=== PATIENT | female | born 2000 | race Caucasian/White ===

== ENCOUNTER 2018-03-19 18:48 | Emergency (ER) | payer BC ==
[2018-03-19 19:17] VITALS: BP 147/93
--- NOTE | 2018-03-19 19:38 | UC ---
Respiratory Complaint HPI - HPI Summary HPI Summary: This patient is a 17 year old F presenting [place] [facility] [place] a chief complaint of a sore throat since 2 days ago in the afternoon. The patient rates the pain 4/10 in severity. Patient reports dysphagia earlier today. Patient denies fever and chills. - History of Current Complaint Stated Complaint: THROAT PAIN Time Seen by Provider: 03/19/18 18:49 Hx Obtained From: Patient Hx Last Menstrual Period: now Onset/Duration: Lasting Days - 3 days, Still Present Severity Initially: Moderate Severity Currently: Moderate Pain Intensity: 4 Pain Scale Used: 0-10 Numeric - Allergies/Home Medications Allergies/Adverse Reactions: Allergies Allergy/AdvReac Type Severity Reaction Status Date / Time orange oil Allergy Rash Uncoded 03/19/18 19:18 PMH/Surg Hx/FS Hx/Imm Hx Endocrine History: Diabetes - Denies Cardiovascular History: Cardiac Disease - Denies - Surgical History Surgical History: None - Family History Known Family History: Positive: Other - Thyroid issues - Social History Occupation: Student Lives: With Family Alcohol Use: Occasionally Substance Use Type: None Smoking Status (MU): Never Smoked Tobacco Have You Smoked in the Last Year: No - Immunization History Most Recent Influenza Vaccination: unknown Most Recent Pneumonia Vaccination: as infant Review of Systems Constitutional: Fever - Denies, Chills - Denies ENT: Sore Throat - Since 2 days ago in the afternoon, Other - Dysphagia All Other Systems Reviewed And Are Negative: Yes Physical Exam - Summary Physical Exam Summary: VITAL SIGNS: Reviewed. GENERAL: Patient is a well-developed and nourished FEMALE who is lying comfortable in the stretcher. Patient is not in any acute respiratory distress. HEAD AND FACE: Normocephalic EYES: PERRLA, EOMI x 2. EARS: Hearing grossly intact. MOUTH: Oropharynx within normal limits. NECK: Pharyngeal erythema, no exudates. Supple, trachea is midline, no adenopathy, no JVD, no carotid bruit. CHEST: Symmetric, no tenderness at palpation LUNGS: Clear to auscultation bilaterally. No wheezing or crackles. CVS: Regular rate and rhythm, S1 and S2 present, no murmurs or gallops appreciated. ABDOMEN: Soft, non-tender. Bowel sounds are normal. No abdominal abnormal pulsations. EXTREMITIES: Full ROM in all major joints, no edema, no cyanosis or clubbing. NEURO: Alert and oriented x 3. No acute neurological deficits. Speech is normal and follows commands. SKIN: Dry and warm Triage Information Reviewed: Yes Vital Signs: Initial Vital Signs Temp 99.0 F 03/19/18 19:16 Pulse 121 03/19/18 19:16 Resp 18 03/19/18 19:16 BP 147/93 03/19/18 19:16 Pulse Ox 100 03/19/18 19:16 Vital Signs Reviewed: Yes Diagnostic Evaluation - Laboratory O2 Sat by Pulse Oximetry: 100 Respiratory Course/Dx - Course Course Of Treatment: [id number] female presents to the urgent care with chief complaint of having sore throat for the last couple days. Patient denies any fever, denies any difficulty swallowing. Rapid strep is negative. It looks like the patient has a viral pharyngitis. Therefore she will be taking ibuprofen or Tylenol for pain. She was recommended to return to the urgent care or go to the emergency department if she develops a fever, difficulty swallowing or any other symptom. She understands and agrees. - Differential Dx/Diagnosis Provider Diagnoses: Pharyngitis Discharge - Sign-Out/Discharge Documenting (check all that apply): Patient Departure All imaging exams completed and their final reports reviewed: No Studies - Discharge Plan Condition: Stable Disposition: HOME Patient Education Materials: Pharyngitis (ED) Referrals: No Primary Care Phys,NOPCP [Primary Care Provider] - [facility] [place] [facility] [Outside] Additional Instructions: Take Acetaminophen or ibuprofen for pain or fever Increase your fluid intake Return to the or go to the emergency department if symptoms worsen Follow-up with primary care physician in next 2-3 days - Billing Disposition and Condition Condition: STABLE Disposition: Home - Attestation Statements Document Initiated by Scribe: Yes Documenting Scribe: Brannon Patiño Provider For Whom Kajalibe is Documenting (Include Credential): Saroj Wei MD Scribe Attestation: Brannon Tse scribed for Saroj Wei MD on 03/19/18 at 2030. Scribe Documentation Reviewed: Yes Provider Attestation: The documentation as recorded by the Brannon byrd accurately reflects the service I personally performed and the decisions made by me, Saroj Wei MD
== END 2018-03-19 20:26 | disposition home or self-care (01) ==
LOC: UCEAST 18:48
DX: J02.9 Acute pharyngitis, unspecified (principal)
CPT/HCPCS: 87651; 99211; G0463